=== PATIENT | male | born 1955 | race Caucasian/White ===

== ENCOUNTER → 2021-03-20 | Day surgery (SDC) | payer OTHER, MEDICARE ==
[~2021-03-20] VITALS: Ht 165.1 cm; Wt 52.3 kg
[~2021-03-20] MED LIST: ASPIRIN CHEWABL81 MG PO; ATIVAN1 MG PO; B COMPLEX1 EACH PO; CELEXA10 MG PO; CERTAGEN1 EACH PO; CHANTIX1 MG PO; COLESTID1 GM PO; COMPAZINE10 MG PO; EFFEXOR XR37.5 MG PO; FLOMAX0.4 MG SL; FOLIC ACID PO; KEPPRA250 MG PO; LOPRESSOR25 MG PO; NEXIUM40 MG PO; NITROQUIK SL0.4 MG SL; NORCO 5-325 TA1 EACH PO; PAXIL10 MG PO; PEPCID AC20 MG PO; PEPCID20 MG PO; PRAVASTATIN SOD10 MG PO; PROAIR HFA8.5 GM INH; SODIUM CHLORIDE1 GM PO; VENTOLIN HFA IN18 GM INH; ZOFRAN4 MG PO
[2021-03-20 08:46] LABS: BASOPHIL 0.7 % (0-2); EOSINOPHIL 0.6 % (0-7); HCT 36.3 % (42.0-52.0); HGB 12.1 g/dl (13.2-18.0); LYMPHOCYTE 23.5 % (15-48); MCH 31.3 pg (25.0-31.0); MCHC 33.3 g/dL (32.0-36.0); MCV 93.8 fL (78.0-100.0); MONOCYTE 15.8 % (0-12); MPV 9.7 fL (6.0-9.5); NEUTROPHIL 57.4 % (41-80); NRBC 0; PLT 331 K/uL (150-400); RBC 3.87 M/uL (4.70-6.00); RDW 15.9 % (11.5-14.0); WBC 7.1 K/uL (4.0-10.5)
[2021-03-20 08:56] LABS: INR 0.99 (0.9-1.2); PROTHROMBIN TIME 12.5 SECONDS (11.8-13.4); PTT 33.7 SECONDS (24.4-34.7)
== END | disposition home or self-care (01) ==
LOC: FAS 07:53
PROVIDERS: Oral & Maxillofacial Surgery
DX: K02.9 Dental caries, unspecified (principal); C34.90 Malignant neoplasm of unspecified part of unspecified bronchus or lung; K04.7 Periapical abscess without sinus; J44.9 Chronic obstructive pulmonary disease, unspecified; I10 Essential (primary) hypertension; Z20.822 Contact with and (suspected) exposure to COVID-19
CPT/HCPCS: 36415; 71045; 85025; 85610; 85730; 93005; J1100; J1170; J2250; J2370; J2405; J2704; J3010; J7120

== ENCOUNTER 2021-10-02 20:57 | Emergency (ER) | payer OTHER, MEDICARE ==
[2021-10-02 21:56] LABS: BASOPHIL 0.5 % (0-2); EOSINOPHIL 0.7 % (0-7); HCT 42.5 % (42.0-52.0); HGB 14.5 g/dl (13.2-18.0); LYMPHOCYTE 7.2 % (15-48); MCH 31.1 pg (25.0-31.0); MCHC 34.1 g/dL (32.0-36.0); MCV 91.2 fL (78.0-100.0); MONOCYTE 13.1 % (0-12); MPV 9.4 fL (6.0-9.5); NEUTROPHIL 77.8 % (41-80); NRBC 0; PLT 251 K/uL (150-400); RBC 4.66 M/uL (4.70-6.00); RDW 12.7 % (11.5-14.0); WBC 11.5 K/uL (4.0-10.5)
[2021-10-02 22:05] LABS: INR 1.17 (0.9-1.2); PROTHROMBIN TIME 14.3 SECONDS (11.8-13.4)
[2021-10-02 22:17] LABS: LACTIC ACID 1.2 mmol/L (0.4-1.9); PTT 80.4 SECONDS (24.4-34.7)
[2021-10-02 22:23] LABS: ALBUMIN 3.3 g/dL (3.4-5.0); BILIRUBIN - TOTAL 0.4 mg/dL (0.2-1.0); CREATININE 1.09 mg/dL (0.67-1.17); POTASSIUM 3.6 mmol/L (3.5-5.1); TOTAL PROTEIN 7.3 g/dL (6.4-8.2)
[2021-10-02 22:38] LABS: INFLUENZA A NAA NEGATIVE (NEGATIVE)
[2021-10-02 22:45] LABS: CORONAVIRUS 2019 SARS-COV-2 POSITIVE (NEGATIVE)
[2021-10-03 00:41] LABS: BILIRUBIN NEGATIVE (NEGATIVE); BLOOD NEGATIVE Ery/uL (NEGATIVE); CLARITY CLEAR (CLEAR); COLOR YELLOW (YELLOW); GLUCOSE (U) NORMAL (NORMAL); LEUKOCYTES NEGATIVE Leu/uL (NEGATIVE); NITRITE NEGATIVE (NEGATIVE); PROTEIN NEGATIVE (NEGATIVE); SPECIFIC GRAVITY <=1.005 (1.001-1.030); UROBILINOGEN 0.2 mg/dL (0.2-1.0)
[2021-10-03] MEDS ORDERED: AZITHROMYCIN250 MG PO (01:29)
[2021-10-03] MEDS ORDERED: PREDNISONE 20MG20 MG PO (01:29)
[2021-10-03] MEDS ORDERED: PAXLOVID 150-11 EACH PO (01:29)
== END 2021-10-03 01:50 | disposition home or self-care (01) ==
LOC: FER 20:57
PROVIDERS: Internal Medicine
DX: U07.1 COVID-19 (principal); J44.9 Chronic obstructive pulmonary disease, unspecified; E86.0 Dehydration; I95.9 Hypotension, unspecified; F17.210 Nicotine dependence, cigarettes, uncomplicated
CPT/HCPCS: 36415; 36600; 71045; 80053; 81003; 82803; 83605; 84145; 84484; 85025; 85610; 85730; 87040; 93005; 94640; 94664; J1100; J1642; J2543; J7030; U0002

== ENCOUNTER 2021-12-13 08:13 | Inpatient (IN) | payer OTHER, MEDICARE ==
[~2021-12-13] VITALS: Ht 165.1 cm; Wt 62.0 kg
[~2021-12-13 08:13] MED LIST changes: +AZITHROMYCIN250 MG PO; +PAXLOVID 150-11 EACH PO; +PREDNISONE 20MG20 MG PO
[2021-12-13 09:18] LABS: BASOPHIL 0.4 % (0-2); EOSINOPHIL 1.5 % (0-7); HCT 37.3 % (42.0-52.0); HGB 12.4 g/dl (13.2-18.0); LYMPHOCYTE 10.5 % (15-48); MCH 29.3 pg (25.0-31.0); MCHC 33.2 g/dL (32.0-36.0); MCV 88.2 fL (78.0-100.0); MONOCYTE 16.3 % (0-12); NRBC 0; PLT 316 K/uL (150-400); RBC 4.23 M/uL (4.70-6.00); RDW 13.7 % (11.5-14.0); WBC 9.6 K/uL (4.0-10.5)
[2021-12-13 09:23] LABS: INR 1.38 (0.9-1.2); PROTHROMBIN TIME 16.5 SECONDS (11.9-13.9)
[2021-12-13 09:28] LABS: PTT 155.4 SECONDS (24.9-34.6)
[2021-12-13 09:41] LABS: LACTIC ACID 0.8 mmol/L (0.4-1.9)
[2021-12-13 09:45] LABS: ALBUMIN 2.5 g/dL (3.4-5.0); BILIRUBIN - TOTAL 0.4 mg/dL (0.2-1.0); BUN/CREAT RATIO (CALC) 16.8 RATIO; CREATININE 0.95 mg/dL (0.67-1.17); GLOBULIN (CALCULATION) 4.6 g/dL; MAGNESIUM 1.5 mg/dL (1.8-2.4); POTASSIUM 3.4 mmol/L (3.5-5.1); TOTAL PROTEIN 7.1 g/dL (6.4-8.2)
[2021-12-13 10:11] LABS: CORONAVIRUS 2019 SARS-COV-2 NEGATIVE (NEGATIVE); INFLUENZA A NAA NEGATIVE (NEGATIVE)
[2021-12-13 11:24] LABS: BILIRUBIN NEGATIVE (NEGATIVE); BLOOD NEGATIVE Ery/uL (NEGATIVE); CLARITY CLEAR (CLEAR); COLOR YELLOW (YELLOW); GLUCOSE (U) NORMAL (NORMAL); LEUKOCYTES NEGATIVE Leu/uL (NEGATIVE); NITRITE NEGATIVE (NEGATIVE); PROTEIN NEGATIVE (NEGATIVE); UROBILINOGEN 0.2 mg/dL (0.2-1.0)
[2021-12-13] MEDS ORDERED: KEYTRUDA100 MG/4 M IJ (13:17)
[2021-12-13] MEDS ORDERED: KEPPRA XR500 MG PO (13:18)
[2021-12-13] MEDS ORDERED: ESOMEPRAZOLE MA40 MG PO (13:19)
[2021-12-13] MEDS ORDERED: EFFEXOR-XR 75 M75 MG PO (13:20)
[2021-12-13] MEDS ORDERED: ASPIRIN EC81 MG PO (13:21)
[2021-12-13] MEDS ORDERED: PRAVASTATIN SOD10 MG PO (13:21)
[2021-12-13] MEDS ORDERED: MAG GLYCINATE100 MG PO (13:22)
[2021-12-13] MEDS ORDERED: ASCORBIC ACID500 MG PO (13:23)
[2021-12-13] MEDS ORDERED: MULTIPLE VITAM1 EAC1 PO (13:23)
[2021-12-13] MEDS ORDERED: [UNRECOGNIZED DRUG - OTHER] PO (13:29)
[2021-12-13] MEDS ORDERED: ZINC PO (13:29)
[2021-12-13] MEDS ORDERED: VENTOLIN HFA IN18 GM INH (13:30)
[2021-12-13] MEDS ORDERED: VENTOLIN (2.5 MG/3 M INH (13:30)
[2021-12-14 06:49] LABS: BASOPHIL 0.1 % (0-2); EOSINOPHIL 0 % (0-7); HGB 9.9 g/dl (13.2-18.0); LYMPHOCYTE 2.2 % (15-48); MCH 29.6 pg (25.0-31.0); MCHC 34.1 g/dL (32.0-36.0); MCV 86.6 fL (78.0-100.0); MONOCYTE 6.4 % (0-12); MPV 10.3 fL (6.0-9.5); NEUTROPHIL 90.9 % (41-80); NRBC 0; PLT 251 K/uL (150-400); RBC 3.35 M/uL (4.70-6.00); RDW 13.5 % (11.5-14.0); WBC 11.3 K/uL (4.0-10.5)
[2021-12-14 07:29] LABS: ALBUMIN 2.1 g/dL (3.4-5.0); BILIRUBIN - TOTAL 0.2 mg/dL (0.2-1.0); BUN/CREAT RATIO (CALC) 11.7 RATIO; CREATININE 0.6 mg/dL (0.67-1.17); GLOBULIN (CALCULATION) 3.6 g/dL; MAGNESIUM 1.3 mg/dL (1.8-2.4); PHOSPHORUS 1.4 mg/dL (2.6-4.7); TOTAL PROTEIN 5.7 g/dL (6.4-8.2)
[2021-12-14 07:35] LABS: POTASSIUM 2.4 mmol/L (3.5-5.1)
[2021-12-15 05:56] LABS: BASOPHIL 0.1 % (0-2); EOSINOPHIL 0 % (0-7); HCT 30.5 % (42.0-52.0); HGB 10.3 g/dl (13.2-18.0); LYMPHOCYTE 1.8 % (15-48); MCH 29.9 pg (25.0-31.0); MCHC 33.8 g/dL (32.0-36.0); MCV 88.4 fL (78.0-100.0); MONOCYTE 6.8 % (0-12); MPV 10.2 fL (6.0-9.5); NEUTROPHIL 90.2 % (41-80); NRBC 0; PLT 272 K/uL (150-400); RBC 3.45 M/uL (4.70-6.00); RDW 13.9 % (11.5-14.0)
[2021-12-15 05:58] LABS: WBC 20.7 K/uL (4.0-10.5)
[2021-12-15 08:09] LABS: BUN/CREAT RATIO (CALC) 15.1 RATIO; CREATININE 0.53 mg/dL (0.67-1.17); MAGNESIUM 1.6 mg/dL (1.8-2.4); POTASSIUM 3.5 mmol/L (3.5-5.1)
[2021-12-15 08:48] LABS: LACTIC ACID 1.6 mmol/L (0.4-1.9)
[2021-12-16 07:49] LABS: HGB 10.8 g/dl (13.2-18.0); MCH 29.6 pg (25.0-31.0); MCHC 33.8 g/dL (32.0-36.0); MCV 87.7 fL (78.0-100.0); RBC 3.65 M/uL (4.70-6.00); RDW 14.1 % (11.5-14.0)
[2021-12-16 08:06] LABS: BUN/CREAT RATIO (CALC) 17.5 RATIO; CREATININE 0.57 mg/dL (0.67-1.17); POTASSIUM 3.1 mmol/L (3.5-5.1)
[2021-12-17 06:22] LABS: HCT 31.3 % (42.0-52.0); HGB 10.6 g/dl (13.2-18.0); MCH 29.7 pg (25.0-31.0); MCHC 33.9 g/dL (32.0-36.0); MCV 87.7 fL (78.0-100.0); MPV 10.9 fL (6.0-9.5); RBC 3.57 M/uL (4.70-6.00); RDW 14.3 % (11.5-14.0)
[2021-12-17 06:48] LABS: BUN/CREAT RATIO (CALC) 27.4 RATIO; CREATININE 0.62 mg/dL (0.67-1.17); POTASSIUM 3.3 mmol/L (3.5-5.1)
[2021-12-18 06:32] LABS: HCT 31.3 % (42.0-52.0); HGB 10.4 g/dl (13.2-18.0); MCH 29.1 pg (25.0-31.0); MCHC 33.2 g/dL (32.0-36.0); MCV 87.7 fL (78.0-100.0); MPV 10.7 fL (6.0-9.5); RBC 3.57 M/uL (4.70-6.00); RDW 14.4 % (11.5-14.0); WBC 15.6 K/uL (4.0-10.5)
[2021-12-18 07:07] LABS: BUN/CREAT RATIO (CALC) 32.1 RATIO; CREATININE 0.53 mg/dL (0.67-1.17); POTASSIUM 3.5 mmol/L (3.5-5.1)
[2021-12-19 05:41] LABS: HGB 9.9 g/dl (13.2-18.0); MCH 29.2 pg (25.0-31.0); MCV 88.5 fL (78.0-100.0); MPV 10.5 fL (6.0-9.5); RBC 3.39 M/uL (4.70-6.00); RDW 14.7 % (11.5-14.0); WBC 13.7 K/uL (4.0-10.5)
[2021-12-19 06:29] LABS: BUN/CREAT RATIO (CALC) 32.7 RATIO; CREATININE 0.52 mg/dL (0.67-1.17); POTASSIUM 2.9 mmol/L (3.5-5.1)
[2021-12-19 14:31] LABS: BUN/CREAT RATIO (CALC) 38.9 RATIO; CREATININE 0.54 mg/dL (0.67-1.17); POTASSIUM 3.1 mmol/L (3.5-5.1)
[2021-12-20 05:19] LABS: BASOPHIL 0.4 % (0-2); EOSINOPHIL 0.1 % (0-7); HGB 10.3 g/dl (13.2-18.0); LYMPHOCYTE 2.7 % (15-48); MCH 29.2 pg (25.0-31.0); MCHC 33.2 g/dL (32.0-36.0); MCV 87.8 fL (78.0-100.0); MONOCYTE 6.3 % (0-12); MPV 10.5 fL (6.0-9.5); NRBC 0; PLT 367 K/uL (150-400); RBC 3.53 M/uL (4.70-6.00); RDW 14.8 % (11.5-14.0); WBC 13.9 K/uL (4.0-10.5)
[2021-12-20 05:26] LABS: BUN/CREAT RATIO (CALC) 30.8 RATIO; CREATININE 0.52 mg/dL (0.67-1.17); POTASSIUM 3.8 mmol/L (3.5-5.1)
[2021-12-20] MEDS ORDERED: AUGMENTIN 500-1 EACH PO (11:09)
[2021-12-20] MEDS ORDERED: ESOMEPRAZOLE MA40 MG PO (11:09)
[2021-12-20] MEDS ORDERED: PREDNISONE 20MG20 MG PO (11:09)
[2021-12-20] MEDS ORDERED: MAG-OXIDE 400M400 MG PO (11:09)
== END 2021-12-20 15:18 | disposition home health service (06) | DRG 871 ==
LOC: FER 08:13 → FMS 11:37 → FTCU 11:37 → FMS 12-19 11:33
PROVIDERS: Allergy & Immunology Allergy; Emergency Medicine; ADMIT Family Medicine
PROC: 3E03329 Introduction of Other Anti-infective into Peripheral Vein, Percutaneous Approach (ICD-10-PCS; principal; 2021-12-13)
PROC: 5A0935A Assistance with Respiratory Ventilation, Less than 24 Consecutive Hours, High Flow/Velocity Cannula (ICD-10-PCS; 2021-12-15)
DX: A41.9 Sepsis, unspecified organism (principal); I50.33 Acute on chronic diastolic (congestive) heart failure; J18.9 Pneumonia, unspecified organism; J96.01 Acute respiratory failure with hypoxia; R65.21 Severe sepsis with septic shock; J44.0 Chronic obstructive pulmonary disease with (acute) lower respiratory infection; J44.1 Chronic obstructive pulmonary disease with (acute) exacerbation; K57.92 Diverticulitis of intestine, part unspecified, without perforation or abscess without bleeding; K52.1 Toxic gastroenteritis and colitis; C34.11 Malignant neoplasm of upper lobe, right bronchus or lung; Z20.822 Contact with and (suspected) exposure to COVID-19; R62.7 Adult failure to thrive; I11.0 Hypertensive heart disease with heart failure; J70.4 Drug-induced interstitial lung disorders, unspecified; T45.1X5A Adverse effect of antineoplastic and immunosuppressive drugs, initial encounter; D63.0 Anemia in neoplastic disease; I27.20 Pulmonary hypertension, unspecified; R41.0 Disorientation, unspecified; Z66 Do not resuscitate; R73.9 Hyperglycemia, unspecified; E83.42 Hypomagnesemia; E87.6 Hypokalemia; K59.00 Constipation, unspecified; K21.9 Gastro-esophageal reflux disease without esophagitis; E78.5 Hyperlipidemia, unspecified; F17.210 Nicotine dependence, cigarettes, uncomplicated; Z90.2 Acquired absence of lung [part of]; Z82.49 Family history of ischemic heart disease and other diseases of the circulatory system; Z80.59 Family history of malignant neoplasm of other urinary tract organ; Z88.8 Allergy status to other drugs, medicaments and biological substances; Z79.899 Other long term (current) drug therapy
CPT/HCPCS: 36415; 36600; 70450; 71045; 71260; 71275; 80048; 80053; 80202; 81003; 82550; 82803; 83036; 83605; 83690; 83735; 83880; 84100; 84145; 84484; 85025; 85379; 85610; 85730; 87040; 87088; 93005; 94640; 94667; 94668; 97116; 97162; 97166; 97530; 97530-GP; 97535; C9113; J0692; J0696; J1100; J1170; J1642; J1650; J1940; J1956; J2543; J2930; J2997; J3370; J3411; J3475; J7030; J7040; J7050; J7120; J7512; Q9967; U0002